=== PATIENT | female | born 1975 | race Caucasian/White ===

== ENCOUNTER → 2016-11-30 | Outpatient (CLI) | payer BC ==
[2016-12-01 01:13] LABS: Estradiol 136.8 pg/mL
== END ==
LOC: MMGSC 10:38
PROVIDERS: ATTEND Obstetrics & Gynecology
DX: E55.9 Vitamin D deficiency, unspecified (principal); R53.83 Other fatigue; K59.00 Constipation, unspecified; N92.6 Irregular menstruation, unspecified
CPT/HCPCS: 36415; 80061; 82306; 82607; 82670; 83001; 84403; 84439; 84443